=== PATIENT | male | born 1955 | race Caucasian/White ===

== ENCOUNTER 2016-10-15 20:41 | Emergency (ER) | payer MEDICAID, OTHER ==
[~2016-10-15] VITALS: Ht 188 cm; Wt 82.0 kg
[2016-10-15] MEDS ORDERED: ACETAMINOPHEN 325MG TABLET PO ONE (22:15)
[2016-10-15] MEDS ORDERED: LORAZEPAM 1MG TABLET PO ONE (22:15)
[2016-10-15 22:36] LABS: GLUCOSE URINE NEGATIVE (NEGATIVE); KETONES URINE NEGATIVE (NEGATIVE); LEUKOCYTE ESTERASE URINE NEGATIVE (NEGATIVE); NITRITE URINE NEGATIVE (NEGATIVE); OCCULT BLOOD URINE NEGATIVE (NEGATIVE); PROTEIN URINE NEGATIVE (NEGATIVE); SPECIFIC GRAVITY URINE 1.023 (1.005-1.030)
[2016-10-15 22:39] LABS: CLARITY URINE CLEAR (CLEAR); COLOR URINE YELLOW (YELLOW)
[2016-10-15 22:48] LABS: *AMPHETAMINES SCREEN URINE PRESUMTIVE POSITIVE (NEGATIVE); *BARBITURATES SCREEN URINE NEGATIVE (NEGATIVE); *BENZODIAZEPINES SCREEN URINE NEGATIVE (NEGATIVE); *COCAINE SCREEN URINE NEGATIVE (NEGATIVE); CANNABINOID URINE SCREEN NEGATIVE (NEGATIVE); METHADONE URINE SCREEN PRESUMTIVE POSITIVE (NEGATIVE); OPIATES URINE SCREEN NEGATIVE (NEGATIVE); PHENCYCLIDINE URINE SCREEN NEGATIVE (NEGATIVE)
[2016-10-15 22:58] LABS: CHLORIDE 100 mEq/L (98-107)
[2016-10-15 23:00] LABS: BASOPHILS % 0.6 % (0.0-2.0); EOSINOPHILS % 1.4 % (0.0-5.0); HEMATOCRIT. 34.8 % (42.0-52.0); HEMOGLOBIN. 11.7 g/dL (14.0-18.0); LYMPHOCYTES % 21.8 % (20.0-50.0); MEAN CORPUSCULAR HEMOGLOBIN 24.7 pg (28.0-32.0); MEAN CORPUSCULAR VOLUME 73.6 fL (80.0-94.0); MEAN PLATELET VOLUME 7.9 fl (7.4-10.4); MONOCYTES % 11.7 % (2.0-8.0); NEUTROPHILS % 64.5 % (40.0-76.0); PLATELET 243 x1000/uL (130-400); RED BLOOD CELL COUNT 4.73 mill/uL (4.7-6.1); RED CELL DISTRIBUTION WIDTH 17.5 % (11.6-14.6)
[2016-10-15 23:01] LABS: CARBON DIOXIDE 27 mEq/L (21-32)
[2016-10-15 23:07] LABS: ETHANOL BLOOD < 10 mg/dL
[2016-10-16] MEDS ORDERED: BACITRACIN ZINC OINT UDPKT TOP ONE (03:00)
[2016-10-16] MEDS ORDERED: LORAZEPAM 1MG TABLET PO ONE ×2 (06:15→06:25)
[2016-10-16] MEDS ORDERED: IBUPROFEN 600MG TABLET PO ONE ×3 (06:15→06:25)
[2016-10-16 12:05] VITALS: BP 133/76
== END 2016-10-16 15:29 | disposition home or self-care (01) ==
LOC: ER 22:19
DX: R44.1 Visual hallucinations (principal); S41.102A Unspecified open wound of left upper arm, initial encounter; F17.210 Nicotine dependence, cigarettes, uncomplicated; F12.10 Cannabis abuse, uncomplicated; F15.10 Other stimulant abuse, uncomplicated; S41.101A Unspecified open wound of right upper arm, initial encounter; X58.XXXA Exposure to other specified factors, initial encounter; Y92.018 Other place in single-family (private) house as the place of occurrence of the external cause
CPT/HCPCS: 36415; 70450; 80053; 80305; 80307; 80329; 81003; 85025; 99285; G0482; Z7610

== ENCOUNTER 2017-04-03 21:14 | Emergency (ER) | payer OTHER ==
[~2017-04-03] VITALS: Ht 190.5 cm; Wt 79.0 kg
[2017-04-03] MEDS ORDERED: NITROGLYCERIN OINT 1GM/INCH UDPKT TD ONE (21:30)
[2017-04-03] MEDS ORDERED: ASPIRIN 81MG TABLET PO ONE (21:30)
[2017-04-03 22:06] LABS: HEMATOCRIT. 31.8 % (42.0-52.0); HEMOGLOBIN. 10.2 g/dL (14.0-18.0); MEAN CORPUSCULAR HEMOGLOBIN 23.3 pg (28.0-32.0); MEAN CORPUSCULAR VOLUME 72.8 fL (80.0-94.0); MEAN PLATELET VOLUME 7.9 fl (7.4-10.4); PLATELET 217 x1000/uL (130-400); RED BLOOD CELL COUNT 4.37 mill/uL (4.7-6.1); RED CELL DISTRIBUTION WIDTH 18.5 % (11.6-14.6)
[2017-04-03 22:20] LABS: CARBON DIOXIDE 29 mEq/L (21-32); CHLORIDE 100 mEq/L (98-107); ETHANOL BLOOD < 10 mg/dL; TROPONIN I < 0.02 ng/mL (0.00-0.04)
[2017-04-03 22:38] LABS: PLATELET ESTIMATE NORMAL
[2017-04-04 00:05] VITALS: BP 109/76
== END 2017-04-04 00:07 | disposition home or self-care (01) ==
LOC: ER 21:16
DX: R07.9 Chest pain, unspecified (principal); F15.10 Other stimulant abuse, uncomplicated; R51 Headache; F17.200 Nicotine dependence, unspecified, uncomplicated
CPT/HCPCS: 36415; 71010; 80053; 83690; 83880; 84484; 85025; 93005; 99285; G0482; Z7610

== ENCOUNTER 2017-08-14 22:05 | Emergency (ER) | payer MEDICAID ==
[~2017-08-14] VITALS: Ht 190.5 cm; Wt 77.0 kg
[~2017-08-14 22:05] MED LIST: AMLO10TA80 PO; BACL-141 PO; CEFE1VIA10 IM/IV; DULO60CA63 PO; GABA-531 PO; MSCON30 PO; NORT25CA PO; OXYC-523 PO; PANT40TA4 PO; RIFA300C4 PO; SULF1TAB47 PO; TEMA15CA5 PO
[2017-08-14] MEDS ORDERED: DIPHENHYDRAMINE 50MG/ML VIAL IV ONE (23:45)
[2017-08-14] MEDS ORDERED: CEFEPIME 1,000 MG in DEXTROSE 5% WATER 50 ML IV SCH (23:45)
[2017-08-14] MEDS ORDERED: VANCOMYCIN 1 G PREMIX 200 ML IV ONE (23:45)
[2017-08-14] MEDS ORDERED: MORPHINE SULFATE 2 MG/ML CPJ (NOT FOR IM USE) IV ONE (23:45)
[2017-08-14] MEDS ORDERED: MORPHINE SULFATE 4 MG/ML CPJ (NOT FOR IM USE) IV NR (23:45)
[2017-08-15] MEDS ORDERED: MORPHINE SULFATE 2 MG/ML CPJ (NOT FOR IM USE) IV ONE (03:30)
[2017-08-15] MEDS ORDERED: MORPHINE SULFATE 4 MG/ML CPJ (NOT FOR IM USE) IV NR (03:45)
[2017-08-15] MEDS ORDERED: DIPHENHYDRAMINE 50MG/ML VIAL IV ONE ×2 (04:00→12:30)
[2017-08-15] MEDS ORDERED: ACETAMINOPHEN 325MG TABLET PO PRN (09:45)
[2017-08-15] MEDS ORDERED: VANCOMYCIN 1 G PREMIX 200 ML IV SCH (10:00)
[2017-08-15 13:30] VITALS: BP 136/70
== END 2017-08-15 13:36 | disposition home or self-care (01) ==
LOC: ER 22:16
DX: M25.551 Pain in right hip (principal); M25.552 Pain in left hip; K75.9 Inflammatory liver disease, unspecified; A49.02 Methicillin resistant Staphylococcus aureus infection, unspecified site; Z88.1 Allergy status to other antibiotic agents; Z95.9 Presence of cardiac and vascular implant and graft, unspecified; Z45.2 Encounter for adjustment and management of vascular access device; Z96.649 Presence of unspecified artificial hip joint
CPT/HCPCS: 96365; 96366; 96368; 96375; 96376; 99285; J0692; J1200; J2270; J3370; Z7610; 96367; J7060

== ENCOUNTER 2017-10-29 21:57 | Emergency (ER) | payer MEDICAID ==
[~2017-10-29] VITALS: Ht 182.9 cm; Wt 73.0 kg
[~2017-10-29 21:57] MED LIST changes: -RIFA300C4 PO; -SULF1TAB47 PO
[2017-10-29] MEDS ORDERED: HYDROCODONE/ACETAMINOPHEN 5/325MG TABLET PO STA (22:09)
[2017-10-29 22:33] LABS: BASOPHILS % 0.4 % (0.0-2.0); EOSINOPHILS % 0.1 % (0.0-5.0); HEMATOCRIT. 34.8 % (42.0-52.0); HEMOGLOBIN. 11.3 g/dL (14.0-18.0); LYMPHOCYTES % 9.7 % (20.0-50.0); MEAN CORPUSCULAR HEMOGLOBIN 24.8 pg (28.0-32.0); MEAN CORPUSCULAR VOLUME 76.9 fL (80.0-94.0); MEAN PLATELET VOLUME 8.9 fl (7.4-10.4); MONOCYTES % 12.7 % (2.0-8.0); NEUTROPHILS % 77.1 % (40.0-76.0); PLATELET 243 x1000/uL (130-400); RED BLOOD CELL COUNT 4.53 mill/uL (4.7-6.1); RED CELL DISTRIBUTION WIDTH 17.3 % (11.6-14.6)
[2017-10-29 22:40] LABS: CHLORIDE 94 mEq/L (98-107); INR 1.1; PROTHROMBIN TIME 11.2 sec (9.4-11.6)
[2017-10-29 22:43] LABS: ETHANOL BLOOD < 10 mg/dL
[2017-10-29 23:45] VITALS: BP 136/77
== END 2017-10-30 00:09 | disposition home or self-care (01) ==
LOC: ER 21:57
DX: M25.559 Pain in unspecified hip (principal); E86.0 Dehydration; Z96.643 Presence of artificial hip joint, bilateral; Z88.3 Allergy status to other anti-infective agents
CPT/HCPCS: 36415; 73522; 80053; 84484; 85025; 85610; 99285; G0482

== ENCOUNTER 2018-05-14 22:31 | Emergency (ER) | payer MEDICAID ==
[~2018-05-14] VITALS: Ht 188 cm; Wt 63.0 kg
[2018-05-15] MEDS ORDERED: TETANUS AND DIPHTHERIA TOX/PF 0.5ML SYR (ADULT) IM ONE (00:30)
[2018-05-15] MEDS ORDERED: TETANUS, DIPHTHERIA, PERTUSSIS VAC/PF 0.5ML (>7YR OLD) IM ONE (01:00)
[2018-05-15] MEDS ORDERED: TETANUS TOXOID,ADSORBED/PF 5 LF/0.5 ML VIAL IM ONE (01:00)
[2018-05-15 03:40] VITALS: BP 126/85
== END 2018-05-15 03:41 | disposition home or self-care (01) ==
LOC: ER 22:31
DX: S61.411A Laceration without foreign body of right hand, initial encounter (principal); F17.200 Nicotine dependence, unspecified, uncomplicated; F11.10 Opioid abuse, uncomplicated; Z86.19 Personal history of other infectious and parasitic diseases; Z88.1 Allergy status to other antibiotic agents; Z96.649 Presence of unspecified artificial hip joint; Z79.899 Other long term (current) drug therapy; X78.0XXA Intentional self-harm by sharp glass, initial encounter; Y93.89 Activity, other specified; Y92.89 Other specified places as the place of occurrence of the external cause; Y99.8 Other external cause status
CPT/HCPCS: 73130; 90471; 90714; 90715; 99283

== ENCOUNTER 2018-07-23 18:03 | Inpatient (IN) | payer MEDICAID ==
[~2018-07-23] VITALS: Ht 193 cm; Wt 67.6 kg
[2018-07-23] MEDS ORDERED: ASPIRIN 325MG TABLET PO ONE (20:45)
[2018-07-23] MEDS ORDERED: KETOROLAC 60MG/2ML VIAL IM ONE (21:45)
[2018-07-23 21:50] LABS: BASOPHILS % 0.8 % (0.0-2.0); EOSINOPHILS % 2.2 % (0.0-5.0); HEMATOCRIT. 39.5 % (42.0-52.0); HEMOGLOBIN. 12.9 g/dL (14.0-18.0); LYMPHOCYTES % 23.4 % (20.0-50.0); MEAN CORPUSCULAR HEMOGLOBIN 26.5 pg (28.0-32.0); MEAN CORPUSCULAR VOLUME 81.5 fL (80.0-94.0); MEAN PLATELET VOLUME 8.1 fl (7.4-10.4); MONOCYTES % 10.3 % (2.0-8.0); NEUTROPHILS % 63.3 % (40.0-76.0); PLATELET 285 x1000/uL (130-400); RED BLOOD CELL COUNT 4.85 mill/uL (4.7-6.1); RED CELL DISTRIBUTION WIDTH 15.9 % (11.6-14.6)
[2018-07-23 21:56] LABS: CHLORIDE 115 mEq/L (98-107)
[2018-07-24 08:00] VITALS: BP 127/57
[2018-07-24 08:48] VITALS: BP 122/62
[2018-07-24] MEDS ORDERED: ACETAMINOPHEN 325MG TABLET PO PRN (09:30)
[2018-07-24] MEDS ORDERED: ONDANSETRON HCL 4MG/2ML INJ IV PRN (09:30)
[2018-07-24] MEDS ORDERED: CLONIDINE 0.1MG TABLET PO PRN (09:30)
[2018-07-24] MEDS ORDERED: IPRATROPIUM/ALBUTEROL 0.5-3(2.5)MG/3ML NEB INH PRN (09:30)
[2018-07-24] MEDS ORDERED: MORPHINE SULFATE 4 MG/ML CPJ (NOT FOR IM USE) IV PRN (10:00)
[2018-07-24 11:40] VITALS: BP 147/86
[2018-07-24 13:15] LABS: LDL CHOLESTEROL 86 mg/dL (5-100)
[2018-07-24 13:16] LABS: TOTAL IRON BINDING CAPACITY 393 ug/dL (250-450)
[2018-07-24 13:17] LABS: HDL CHOLESTEROL 42 mg/dL (40-59)
[2018-07-24] MEDS ORDERED: LIDOCAINE HCL 1% 20ML VIAL (Pyxis) INJ ONE (13:24)
[2018-07-24] MEDS ORDERED: SODIUM BICARBONATE 4% (2.4MEQ) 5ML VIAL IV ONE (13:24)
[2018-07-24 13:26] LABS: FERRITIN 74 ng/mL (22-322)
[2018-07-24 13:37] LABS: VITAMIN B12 SERUM 704 pg/mL (211-911)
[2018-07-24 13:43] LABS: FOLIC ACID (FOLATE) SERUM > 20.00 ng/mL (>5.38)
[2018-07-24] MEDS ORDERED: IOHEXOL-300 50 ML BOTTLE IV ONE (14:19)
[2018-07-24] MEDS: METHADONE HCL 10MG TABLET PO SCH (17:17)
[2018-07-24 20:00] VITALS: BP 134/78
[2018-07-24] MEDS: LORAZEPAM 0.5MG TABLET PO PRN (20:40)
[2018-07-24] MEDS: HYDROCODONE/ACETAMINOPHEN 5/325MG TABLET PO PRN (21:59)
[2018-07-25] VITALS: BP 133/71
[2018-07-25 04:00] VITALS: BP 116/66
[2018-07-25] MEDS: HYDROCODONE/ACETAMINOPHEN 5/325MG TABLET PO PRN ×2 (06:04→22:29)
[2018-07-25 06:57] LABS: CHLORIDE 109 mEq/L (98-107)
[2018-07-25 07:06] LABS: C REACTIVE PROTEIN QUANT 0.5 mg/L (0.0-3.0)
[2018-07-25 07:13] LABS: BASOPHILS % 0.9 % (0.0-2.0); EOSINOPHILS % 4.2 % (0.0-5.0); HEMATOCRIT. 39.9 % (42.0-52.0); HEMOGLOBIN. 12.8 g/dL (14.0-18.0); LYMPHOCYTES % 24.6 % (20.0-50.0); MEAN CORPUSCULAR HEMOGLOBIN 26.2 pg (28.0-32.0); MEAN CORPUSCULAR VOLUME 81.5 fL (80.0-94.0); MEAN PLATELET VOLUME 8.3 fl (7.4-10.4); MONOCYTES % 12.9 % (2.0-8.0); NEUTROPHILS % 57.4 % (40.0-76.0); PLATELET 267 x1000/uL (130-400); RED CELL DISTRIBUTION WIDTH 16.1 % (11.6-14.6)
[2018-07-25] MEDS: METHADONE HCL 10MG TABLET PO SCH ×2 (09:07→17:49)
[2018-07-25 12:00] VITALS: BP 102/66
[2018-07-25 15:47] LABS: INR 1.1; PROTHROMBIN TIME 11.3 sec (9.1-11.1)
[2018-07-25] MEDS: MORPHINE SULFATE 4 MG/ML CPJ (NOT FOR IM USE) IV PRN ×2 (15:47→19:59)
[2018-07-25 16:00] VITALS: BP 113/63
[2018-07-25 16:44] LABS: T4 FREE 1.35 ng/dL (0.76-1.46)
[2018-07-25 20:00] VITALS: BP 106/70
[2018-07-26] VITALS: BP 101/63
[2018-07-26] MEDS: MORPHINE SULFATE 4 MG/ML CPJ (NOT FOR IM USE) IV PRN ×4 (00:39→19:32)
[2018-07-26] MEDS: ZOLPIDEM TARTRATE 5MG TABLET PO PRN ×2 (00:40→19:30)
[2018-07-26 04:00] VITALS: BP 110/63
[2018-07-26 08:00] VITALS: BP 107/70
[2018-07-26] MEDS ORDERED: SODIUM BICARBONATE 4% (2.4MEQ) 5ML VIAL IV ONE (08:22)
[2018-07-26] MEDS ORDERED: LIDOCAINE HCL 1% 20ML VIAL (Pyxis) INJ ONE (08:22)
[2018-07-26] MEDS: METHADONE HCL 10MG TABLET PO SCH ×2 (09:46→16:10)
[2018-07-26 09:50] LABS: CLARITY URINE CLEAR (CLEAR); COLOR URINE YELLOW (YELLOW); KETONES URINE NEGATIVE (NEGATIVE); LEUKOCYTE ESTERASE URINE NEGATIVE (NEGATIVE); NITRITE URINE NEGATIVE (NEGATIVE); OCCULT BLOOD URINE NEGATIVE (NEGATIVE); PH URINE 5.5 (4.5-8.0); PROTEIN URINE NEGATIVE (NEGATIVE); SPECIFIC GRAVITY URINE 1.019 (1.005-1.030); UROBILINOGEN URINE 0.2 E.U./dL (0.2-1.0)
[2018-07-26 09:51] LABS: *AMPHETAMINES SCREEN URINE PRESUMTIVE POSITIVE (NEGATIVE); *BARBITURATES SCREEN URINE NEGATIVE (NEGATIVE); *BENZODIAZEPINES SCREEN URINE NEGATIVE (NEGATIVE); *COCAINE SCREEN URINE NEGATIVE (NEGATIVE); METHADONE URINE SCREEN PRESUMTIVE POSITIVE (NEGATIVE); OPIATES URINE SCREEN PRESUMTIVE POSITIVE (NEGATIVE)
[2018-07-26 09:52] LABS: CANNABINOID URINE SCREEN NEGATIVE (NEGATIVE); PHENCYCLIDINE URINE SCREEN NEGATIVE (NEGATIVE)
[2018-07-26 12:00] VITALS: BP 111/67
[2018-07-26 16:00] VITALS: BP 110/65
[2018-07-26] MEDS: LORAZEPAM 0.5MG TABLET PO PRN (17:41)
[2018-07-26 20:00] VITALS: BP 100/61
[2018-07-26] MEDS: HYDROCODONE/ACETAMINOPHEN 5/325MG TABLET PO PRN (22:20)
[2018-07-27] VITALS: BP 112/58
[2018-07-27] MEDS: MORPHINE SULFATE 4 MG/ML CPJ (NOT FOR IM USE) IV PRN ×4 (02:33→22:09)
[2018-07-27 07:00] LABS: HEMATOCRIT. 37.5 % (42.0-52.0); HEMOGLOBIN. 11.9 g/dL (14.0-18.0); MEAN CORPUSCULAR HEMOGLOBIN 25.8 pg (28.0-32.0); MEAN CORPUSCULAR VOLUME 81.4 fL (80.0-94.0); MEAN PLATELET VOLUME 8.5 fl (7.4-10.4); PLATELET 185 x1000/uL (130-400); RED BLOOD CELL COUNT 4.61 mill/uL (4.7-6.1); RED CELL DISTRIBUTION WIDTH 15.8 % (11.6-14.6)
[2018-07-27 07:14] LABS: CHLORIDE 103 mEq/L (98-107)
[2018-07-27 08:00] VITALS: BP 108/58
[2018-07-27] MEDS: METHADONE HCL 10MG TABLET PO SCH ×2 (09:33→18:07)
[2018-07-27 09:51] LABS: PLATELET ESTIMATE NORMAL
[2018-07-27 12:00] VITALS: BP 88/68
[2018-07-27 16:00] VITALS: BP 111/65
[2018-07-27] MEDS: HYDROCODONE/ACETAMINOPHEN 5/325MG TABLET PO PRN (20:02)
[2018-07-27] MEDS: LORAZEPAM 0.5MG TABLET PO PRN (20:03)
[2018-07-27] MEDS: ZOLPIDEM TARTRATE 5MG TABLET PO PRN (22:07)
[2018-07-28] VITALS: BP 104/56
[2018-07-28 04:00] VITALS: BP 102/61
[2018-07-28] MEDS: MORPHINE SULFATE 4 MG/ML CPJ (NOT FOR IM USE) IV PRN ×4 (05:48→23:33)
[2018-07-28 08:00] VITALS: BP 103/59
[2018-07-28] MEDS: HYDROCODONE/ACETAMINOPHEN 5/325MG TABLET PO PRN (08:09)
[2018-07-28 08:19] LABS: HIV SCREEN 4G Non Reactive (Non Reactive)
[2018-07-28] MEDS: METHADONE HCL 10MG TABLET PO SCH ×2 (09:00→17:34)
[2018-07-28 12:00] VITALS: BP 100/51
[2018-07-28 20:00] VITALS: BP 100/44
[2018-07-28] MEDS: ZOLPIDEM TARTRATE 5MG TABLET PO PRN (20:26)
[2018-07-29] VITALS: BP 104/57
[2018-07-29] MEDS: LORAZEPAM 0.5MG TABLET PO PRN (01:38)
[2018-07-29 04:00] VITALS: BP 123/57
[2018-07-29] MEDS: MORPHINE SULFATE 4 MG/ML CPJ (NOT FOR IM USE) IV PRN ×4 (05:49→20:30)
[2018-07-29 08:00] VITALS: BP 106/58
[2018-07-29] MEDS: METHADONE HCL 10MG TABLET PO SCH (09:12)
[2018-07-29 12:00] VITALS: BP 106/55
[2018-07-29 16:00] VITALS: BP 102/60
[2018-07-29 20:00] VITALS: BP 102/53
[2018-07-29] MEDS ORDERED: ZOLPIDEM TARTRATE 5MG TABLET PO PRN (22:15)
[2018-07-30] VITALS: BP 102/53
[2018-07-30 04:00] VITALS: BP 114/70
[2018-07-30] MEDS: MORPHINE SULFATE 4 MG/ML CPJ (NOT FOR IM USE) IV PRN ×2 (04:55→11:44)
[2018-07-30 06:47] LABS: HEMATOCRIT. 34.8 % (42.0-52.0); HEMOGLOBIN. 11.4 g/dL (14.0-18.0); MEAN CORPUSCULAR HEMOGLOBIN 26.7 pg (28.0-32.0); MEAN CORPUSCULAR VOLUME 81.6 fL (80.0-94.0); MEAN PLATELET VOLUME 8.9 fl (7.4-10.4); PLATELET 127 x1000/uL (130-400); RED BLOOD CELL COUNT 4.26 mill/uL (4.7-6.1); RED CELL DISTRIBUTION WIDTH 16.1 % (11.6-14.6)
[2018-07-30 07:07] LABS: CHLORIDE 104 mEq/L (98-107)
[2018-07-30 08:00] VITALS: BP 105/53
[2018-07-30] MEDS: METHADONE HCL 10MG TABLET PO SCH (09:38)
[2018-07-30 12:00] VITALS: BP 113/56
[2018-07-30 13:03] LABS: PLATELET ESTIMATE SLIGHTLY DECREASED
[2018-07-30 15:28] VITALS: BP 113/69
[2018-07-30 16:00] VITALS: BP 99/48
== END 2018-07-30 16:00 | disposition home health service (06) | DRG 349 ==
LOC: ER 18:03 → 6EST 07-24 00:57 → EDBEDREQTM 07-24 01:08 → EDBEDREQ 07-24 01:08 → ENRESERV 07-24 04:04
PROVIDERS: ADMIT Internal Medicine; ATTEND Internal Medicine
PROC: 02HV33Z Insertion of Infusion Device into Superior Vena Cava, Percutaneous Approach (ICD-10-PCS; principal; 2018-07-24)
PROC: B5181ZA Fluoroscopy of Superior Vena Cava using Low Osmolar Contrast, Guidance (ICD-10-PCS; 2018-07-24)
PROC: B548ZZA Ultrasonography of Superior Vena Cava, Guidance (ICD-10-PCS; 2018-07-24)
PROC: 0S9B3ZZ Drainage of Left Hip Joint, Percutaneous Approach (ICD-10-PCS; 2018-07-26)
DX: T84.031A Mechanical loosening of internal left hip prosthetic joint, initial encounter (principal); F11.20 Opioid dependence, uncomplicated; M86.9 Osteomyelitis, unspecified; E87.6 Hypokalemia; G89.4 Chronic pain syndrome; Z96.643 Presence of artificial hip joint, bilateral; Z59.0 Homelessness; Z86.14 Personal history of Methicillin resistant Staphylococcus aureus infection; D64.9 Anemia, unspecified; T84.030A Mechanical loosening of internal right hip prosthetic joint, initial encounter; D72.821 Monocytosis (symptomatic); Z88.1 Allergy status to other antibiotic agents; F17.210 Nicotine dependence, cigarettes, uncomplicated; I10 Essential (primary) hypertension; Z87.81 Personal history of (healed) traumatic fracture; L97.519 Non-pressure chronic ulcer of other part of right foot with unspecified severity; Y83.8 Other surgical procedures as the cause of abnormal reaction of the patient, or of later complication, without mention of misadventure at the time of the procedure; Y92.89 Other specified places as the place of occurrence of the external cause
CPT/HCPCS: 20611; 36415; 36569; 73521; 73630; 73721; 75820; 76937; 77001; 80048; 80061; 80305; 82607; 82728; 82746; 83036; 83540; 83550; 83735; 84100; 84145; 84439; 84443; 84481; 85049; 85651; 86140; 87389; 96374; 96375; 97162; 99285; C1725; C1887; J1885; J2270; J3490; Q9967

== ENCOUNTER 2019-04-07 21:27 | Emergency (ER) | payer OTHER ==
[~2019-04-07] VITALS: Ht 180.3 cm; Wt 82.0 kg
[~2019-04-07 21:27] MED LIST changes: -DULO60CA63 PO; +DULO60CA64 PO
[2019-04-07] MEDS ORDERED: IBUPROFEN 400MG TABLET PO ONE (22:15)
[2019-04-07] MEDS ORDERED: KETOROLAC 30MG/ML VIAL IM ONE (22:30)
[2019-04-07] MEDS ORDERED: ACETAMINOPHEN 650MG/20.3ML UDC PO ONE (23:00)
[2019-04-07 23:38] LABS: CHLORIDE 106 mEq/L (98-107)
[2019-04-07 23:41] LABS: ETHANOL BLOOD < 10 mg/dL
[2019-04-07] MEDS ORDERED: ACETAMINOPHEN 325MG TABLET PO ONE (23:45)
[2019-04-07 23:48] LABS: HEMATOCRIT. 37.9 % (42.0-52.0); HEMOGLOBIN. 12.3 g/dL (14.0-18.0); MEAN CORPUSCULAR HEMOGLOBIN 24.4 pg (28.0-32.0); MEAN CORPUSCULAR VOLUME 75.5 fL (80.0-94.0); MEAN PLATELET VOLUME 8.7 fl (7.4-10.4); PLATELET 202 x1000/uL (130-400); RED BLOOD CELL COUNT 5.02 mill/uL (4.7-6.1); RED CELL DISTRIBUTION WIDTH 21.8 % (11.6-14.6)
[2019-04-08 00:48] LABS: PLATELET ESTIMATE NORMAL
[2019-04-08 01:03] LABS: CLARITY URINE CLOUDY (CLEAR); COLOR URINE YELLOW (YELLOW); KETONES URINE 1+ (NEGATIVE); LEUKOCYTE ESTERASE URINE NEGATIVE (NEGATIVE); NITRITE URINE NEGATIVE (NEGATIVE); OCCULT BLOOD URINE NEGATIVE (NEGATIVE); PH URINE 6.5 (4.5-8.0); PROTEIN URINE 1+ (NEGATIVE); SPECIFIC GRAVITY URINE 1.021 (1.005-1.030)
[2019-04-08 01:23] LABS: *AMPHETAMINES SCREEN URINE PRESUMTIVE POSITIVE (NEGATIVE); *BARBITURATES SCREEN URINE NEGATIVE (NEGATIVE); OPIATES URINE SCREEN PRESUMTIVE POSITIVE (NEGATIVE)
[2019-04-08 01:24] LABS: *BENZODIAZEPINES SCREEN URINE NEGATIVE (NEGATIVE); *COCAINE SCREEN URINE NEGATIVE (NEGATIVE); CANNABINOID URINE SCREEN PRESUMTIVE POSITIVE (NEGATIVE); METHADONE URINE SCREEN NEGATIVE (NEGATIVE); PHENCYCLIDINE URINE SCREEN NEGATIVE (NEGATIVE)
[2019-04-08] MEDS ORDERED: ACETAMINOPHEN 325MG TABLET PO ONE (03:45)
[2019-04-08] MEDS ORDERED: LORAZEPAM 2MG/ML CPJ IM ONE (04:00)
[2019-04-08] MEDS ORDERED: IBUPROFEN 600MG TABLET PO ONE (06:45)
[2019-04-08] MEDS ORDERED: LORAZEPAM 1MG TABLET PO ONE (08:15)
[2019-04-08] MEDS ORDERED: KETOROLAC 60MG/2ML VIAL IM ONE ×2 (12:45→18:30)
[2019-04-08] MEDS ORDERED: GABAPENTIN 300MG CAPSULE PO ONE (15:15)
[2019-04-08] MEDS ORDERED: LORAZEPAM 0.5MG TABLET PO ONE (22:00)
[2019-04-08] MEDS ORDERED: IBUPROFEN 800MG TABLET PO ONE (22:45)
[2019-04-09] MEDS ORDERED: TRAMADOL 50MG TABLET PO ONE (03:45)
[2019-04-09] MEDS ORDERED: HYDROCODONE/ACETAMINOPHEN 5/325MG TABLET PO ONE (04:45)
[2019-04-09] MEDS ORDERED: DIPHENHYDRAMINE 25MG CAPSULE PO ONE (07:00)
[2019-04-09] MEDS ORDERED: OXYCODONE HCL 10MG TABLET SR 12HR PO ONE (07:00)
[2019-04-09] MEDS ORDERED: KETOROLAC 15MG/ML VIAL IM ONE (09:00)
[2019-04-09 14:29] VITALS: BP 170/82
== END 2019-04-09 14:30 | disposition home or self-care (01) ==
LOC: ER 21:27
DX: M25.551 Pain in right hip (principal); M25.552 Pain in left hip; R45.851 Suicidal ideations; R35.0 Frequency of micturition; R53.81 Other malaise; R03.0 Elevated blood-pressure reading, without diagnosis of hypertension; F17.210 Nicotine dependence, cigarettes, uncomplicated
CPT/HCPCS: 36415; 80053; 80307; 80320; 80329; 85025; 96372; 99284; J1885; Q0163; Z7610; G0480

== ENCOUNTER 2020-04-18 20:30 | Emergency (ER) | payer OTHER ==
[~2020-04-18] VITALS: Ht 188 cm; Wt 79.0 kg
[2020-04-19 01:38] LABS: HEMATOCRIT 35.1 % (42.0-52.0); HEMOGLOBIN 11.2 g/dL (14.0-18.0); MEAN CORPUSCULAR HEMOGLOBIN 24.5 pg (28.0-32.0); MEAN CORPUSCULAR VOLUME 76.9 fL (80.0-94.0); PLATELET 273 x1000/uL (130-400); RED BLOOD CELL COUNT 4.56 mill/uL (4.7-6.1); RED CELL DISTRIBUTION WIDTH 19.3 % (11.6-14.6)
[2020-04-19 01:43] LABS: CHLORIDE 104 mEq/L (98-107)
[2020-04-19 02:11] VITALS: BP 120/59
== END 2020-04-19 03:00 | disposition home or self-care (01) ==
LOC: ER 20:30
DX: M25.551 Pain in right hip (principal); G89.29 Other chronic pain; Z76.5 Malingerer [conscious simulation]; R03.0 Elevated blood-pressure reading, without diagnosis of hypertension; R00.0 Tachycardia, unspecified; Z96.641 Presence of right artificial hip joint; Z96.659 Presence of unspecified artificial knee joint; Z86.19 Personal history of other infectious and parasitic diseases
CPT/HCPCS: 36415; 80053; 83605; 84145; 85027; 93005; 99284

== ENCOUNTER 2020-05-16 20:40 | Emergency (ER) | payer OTHER ==
[~2020-05-16] VITALS: Ht 180.3 cm; Wt 72.0 kg
[2020-05-16] MEDS ORDERED: HYDROCODONE/ACETAMINOPHEN 5/325MG TABLET PO ONE (22:15)
[2020-05-16] MEDS ORDERED: KETOROLAC 60MG/2ML VIAL IM ONE (22:15)
[2020-05-16 23:07] VITALS: BP 157/69
== END 2020-05-16 23:08 | disposition home or self-care (01) ==
LOC: ER 20:40
DX: G89.29 Other chronic pain (principal); M25.552 Pain in left hip; M25.551 Pain in right hip; F11.20 Opioid dependence, uncomplicated; Z88.1 Allergy status to other antibiotic agents; Z88.9 Allergy status to unspecified drugs, medicaments and biological substances; Z79.899 Other long term (current) drug therapy
CPT/HCPCS: 96372; 99283; J1885

== ENCOUNTER 2020-05-20 18:25 | Emergency (ER) | payer OTHER ==
[~2020-05-20] VITALS: Ht 172.7 cm; Wt 86.0 kg
[2020-05-20] MEDS ORDERED: KETOROLAC 60MG/2ML VIAL IM ONE (19:30)
[2020-05-20] MEDS ORDERED: ACETAMINOPHEN 325MG TABLET PO ONE (22:45)
[2020-05-21 00:33] VITALS: BP 113/66
== END 2020-05-21 03:09 | disposition home or self-care (01) ==
LOC: ER 18:38
DX: S80.01XA Contusion of right knee, initial encounter (principal); W18.39XA Other fall on same level, initial encounter; Y93.89 Activity, other specified; Y92.89 Other specified places as the place of occurrence of the external cause; Y99.8 Other external cause status; Z79.899 Other long term (current) drug therapy; Z88.1 Allergy status to other antibiotic agents; Z20.822 Contact with and (suspected) exposure to COVID-19
CPT/HCPCS: 71045; 73560; 93005; 96372; 99284; J1885; L1830

== ENCOUNTER 2020-05-24 17:22 | Emergency (ER) | payer OTHER ==
[~2020-05-24] VITALS: Ht 170.2 cm; Wt 75.0 kg
[~2020-05-24 17:22] MED LIST changes: -GABA-531 PO; +GABA-532 PO; -PANT40TA4 PO; +PANT40TA51 PO
[2020-05-24 17:27] VITALS: BP 170/82
[2020-05-24] MEDS ORDERED: ACETAMINOPHEN 325MG TABLET PO ONE (17:45)
== END 2020-05-24 19:16 | disposition left against medical advice (07) ==
LOC: ER 17:22
DX: M16.11 Unilateral primary osteoarthritis, right hip (principal); G89.29 Other chronic pain; I10 Essential (primary) hypertension; F15.10 Other stimulant abuse, uncomplicated; F11.10 Opioid abuse, uncomplicated
CPT/HCPCS: 99283

== ENCOUNTER 2021-04-14 21:10 | Emergency (ER) | payer OTHER ==
[~2021-04-14] VITALS: Ht 177.8 cm; Wt 65.0 kg
[~2021-04-14 21:10] MED LIST changes: -OXYC-523 PO; +OXYC1TAB5 PO
[2021-04-15 03:12] LABS: BASOPHILS % 0.6 % (0.0-2.0); EOSINOPHILS % 1.1 % (0.0-5.0); HEMATOCRIT. 37.9 % (42.0-52.0); LYMPHOCYTES % 11.7 % (20.0-50.0); MEAN CORPUSCULAR HEMOGLOBIN 25.3 pg (28.0-32.0); MEAN CORPUSCULAR VOLUME 79.9 fL (80.0-94.0); MEAN PLATELET VOLUME 8.5 fl (7.4-10.4); NEUTROPHILS % 73.6 % (40.0-76.0); PLATELET 153 x1000/uL (130-400); RED BLOOD CELL COUNT 4.74 mill/uL (4.7-6.1)
[2021-04-15 03:18] LABS: CHLORIDE 105 mEq/L (98-107)
[2021-04-15] MEDS ORDERED: CLINDAMYCIN 900 MG PREMIX 50 ML IV SCH (04:15)
[2021-04-15] MEDS ORDERED: MORPHINE SULFATE 4 MG/ML CPJ (NOT FOR IM USE) IV ONE (05:45)
[2021-04-15] MEDS ORDERED: ACETAMINOPHEN 325MG TABLET PO ONE (08:45)
[2021-04-15 12:10] VITALS: BP 114/65
[2021-04-15] MEDS ORDERED: IBUPROFEN 200MG TABLET PO ONE (12:45)
== END 2021-04-15 13:15 | disposition short-term general hospital (02) ==
LOC: ER 21:10
DX: M86.9 Osteomyelitis, unspecified (principal); M25.552 Pain in left hip; Z79.899 Other long term (current) drug therapy; Z20.822 Contact with and (suspected) exposure to COVID-19
CPT/HCPCS: 36415; 73502; 80053; 85025; 86140; 87426; 96365; 96375; 99285; J2270; J3490

== ENCOUNTER 2022-09-15 18:47 | Inpatient (IN) | payer MEDICAID, OTHER ==
[~2022-09-15] VITALS: Ht 175.3 cm; Wt 68.0 kg
[2022-09-15] MEDS ORDERED: CLINDAMYCIN 600 MG in DEXTROSE 5% WATER 50 ML IV ONE (20:00)
[2022-09-15] MEDS ORDERED: SODIUM CHLORIDE 0.9% 1000ML BAG (SEPSIS BOLUS) IV ONE (20:00)
[2022-09-15] MEDS ORDERED: MORPHINE SULFATE 4 MG/ML CPJ (NOT FOR IM USE) IV STA (20:02)
[2022-09-15] MEDS ORDERED: ONDANSETRON HCL 4MG/2ML INJ IV STA (20:02)
[2022-09-15] MEDS ORDERED: PIPERACILLIN/TAZ 3.375G PREMIX 50 ML IV ONE (20:15)
[2022-09-15 20:43] LABS: BASOPHILS % 0.4 % (0.0-2.0); EOSINOPHILS % 1.5 % (0.0-5.0); HEMATOCRIT. 38.9 % (42.0-52.0); HEMOGLOBIN. 12.3 g/dL (14.0-18.0); MEAN CORPUSCULAR HEMOGLOBIN 28.5 pg (28.0-32.0); MEAN CORPUSCULAR VOLUME 90.4 fL (80.0-94.0); MEAN PLATELET VOLUME 7.5 fl (7.4-10.4); MONOCYTES % 10.9 % (2.0-8.0); NEUTROPHILS % 77.2 % (40.0-76.0); PLATELET 248 x1000/uL (130-400); RED CELL DISTRIBUTION WIDTH 14.1 % (11.6-14.6)
[2022-09-15 20:48] LABS: CHLORIDE 103 mEq/L (98-107)
[2022-09-15] MEDS ORDERED: PIPERACILLIN/TAZ 3.375G PREMIX 50 ML IV NR (23:00)
[2022-09-15] MEDS ORDERED: ONDANSETRON HCL 4MG/2ML INJ IV NR (23:00)
[2022-09-15 23:28] LABS: PARTIAL THROMBOPLASTIN TIME 28.5 sec (23.4-31.0); PROTHROMBIN TIME 11.1 sec (9.6-11.0)
[2022-09-16] MEDS ORDERED: MORPHINE SULFATE 2 MG/ML CPJ (NOT FOR IM USE) IV ONE ×2 (01:45→05:00)
[2022-09-16] MEDS ORDERED: HYDROCODONE/ACETAMINOPHEN 5/325MG TABLET PO PRN (02:15)
[2022-09-16] MEDS ORDERED: DOCUSATE SODIUM 100MG CAPSULE PO PRN (02:15)
[2022-09-16] MEDS ORDERED: MAGNESIUM/ALUMINUM HYDROXIDE/SIMETHICONE 30ML UDC PO PRN (02:15)
[2022-09-16] MEDS ORDERED: ACETAMINOPHEN 325MG TABLET PO PRN (02:15)
[2022-09-16] MEDS ORDERED: ONDANSETRON HCL 4MG/2ML INJ IV PRN (02:15)
[2022-09-16] MEDS: SODIUM CHLORIDE 0.9% 1,000 ML IV SCH ×2 (02:27→16:00)
[2022-09-16] MEDS ORDERED: NALOXONE HCL 1 MG/ML 2ML VIAL IV PRN (05:00)
[2022-09-16 05:29] LABS: BASOPHILS % 0.7 % (0.0-2.0); HEMATOCRIT. 30.4 % (42.0-52.0); HEMOGLOBIN. 10.2 g/dL (14.0-18.0); LYMPHOCYTES % 15.3 % (20.0-50.0); MEAN CORPUSCULAR HEMOGLOBIN 29.1 pg (28.0-32.0); MEAN CORPUSCULAR VOLUME 86.9 fL (80.0-94.0); MEAN PLATELET VOLUME 7.4 fl (7.4-10.4); MONOCYTES % 14.8 % (2.0-8.0); NEUTROPHILS % 67.2 % (40.0-76.0); PLATELET 197 x1000/uL (130-400); RED BLOOD CELL COUNT 3.49 mill/uL (4.7-6.1); RED CELL DISTRIBUTION WIDTH 13.6 % (11.6-14.6)
[2022-09-16 05:38] LABS: CHLORIDE 117 mEq/L (98-107)
[2022-09-16 05:49] LABS: HDL CHOLESTEROL 21 mg/dL (40-59); LDL CHOLESTEROL 53 mg/dL (5-100); TOTAL IRON BINDING CAPACITY 162 ug/dL (250-450)
[2022-09-16] MEDS ORDERED: PIPERACILLIN/TAZOBACTAM 3.375 G in DEXTROSE 5% WATER 50 ML IV SCH ×2 (06:00→14:00)
[2022-09-16] MEDS ORDERED: MORPHINE SULFATE 2 MG/ML CPJ (NOT FOR IM USE) IV PRN (06:00)
[2022-09-16] MEDS ORDERED: DAPTOMYCIN 250 MG in SODIUM CHLORIDE 0.9% 50 ML IV SCH (06:00)
[2022-09-16 06:10] LABS: FOLIC ACID (FOLATE) SERUM 13.4 ng/mL (>5.38)
[2022-09-16] MEDS ORDERED: PIPERACILLIN/TAZ 3.375G PREMIX 50 ML IV NR (07:45)
[2022-09-16] MEDS ORDERED: DAPTOMYCIN 400 MG in SODIUM CHLORIDE 0.9% 50 ML IV SCH (09:00)
[2022-09-16] MEDS ORDERED: ENOXAPARIN 40MG/0.4ML SYR SUBCUT SCH (09:00)
[2022-09-16 09:26] LABS: CREATINE KINASE 33 IU/L (39-308)
[2022-09-16] MEDS ORDERED: POTASSIUM CHLORIDE INJ 40 MEQ in DEXT 5% WATER 250 ML IV ONE (09:45)
[2022-09-16] MEDS ORDERED: KCL 20MEQ/100ML X 2 FOR TOTAL KCL 40MEQ/200ML IV SCH (10:00)
[2022-09-16] MEDS: ACETAMINOPHEN 325MG TABLET PO PRN ×2 (10:18→10:46)
[2022-09-16] MEDS ORDERED: LORAZEPAM 2MG/ML CPJ IV NR (10:45)
[2022-09-16] MEDS ORDERED: MORPHINE SULFATE 2 MG/ML CPJ (NOT FOR IM USE) IV NR (11:15)
[2022-09-16 12:03] VITALS: BP 138/89
[2022-09-16] MEDS ORDERED: MORPHINE SULFATE 4 MG/ML CPJ (NOT FOR IM USE) IV PRN (12:15)
[2022-09-16] MEDS ORDERED: NALOXONE HCL 0.4MG/ML VIAL IV PRN (12:30)
[2022-09-16] MEDS ORDERED: FAMOTIDINE 20MG TABLET PO SCH (21:00)
== END 2022-09-16 16:55 | disposition left against medical advice (07) | DRG 344 ==
LOC: ER 18:47 → 4WST 09-16 00:45 → EDBEDREQTM 09-16 00:50 → EDBEDREQSVC 09-16 00:50 → EDBEDREQ 09-16 00:50 → EDBEDREQDT 09-16 00:50 → ENRESERV 09-16 07:01 → CANRESERV 09-16 07:01 → EDBEDREQSVC 09-16 07:17
PROVIDERS: ADMIT Internal Medicine; ATTEND Internal Medicine
DX: M86.8X7 Other osteomyelitis, ankle and foot (principal); E46 Unspecified protein-calorie malnutrition; D63.8 Anemia in other chronic diseases classified elsewhere; E87.1 Hypo-osmolality and hyponatremia; L03.039 Cellulitis of unspecified toe; B19.20 Unspecified viral hepatitis C without hepatic coma; J44.9 Chronic obstructive pulmonary disease, unspecified; F17.210 Nicotine dependence, cigarettes, uncomplicated; Z96.643 Presence of artificial hip joint, bilateral; Z88.1 Allergy status to other antibiotic agents; Z68.22 Body mass index [BMI] 22.0-22.9, adult; Z79.899 Other long term (current) drug therapy; Z53.29 Procedure and treatment not carried out because of patient's decision for other reasons
CPT/HCPCS: 36415; 71045; 73620; 80048; 80053; 80061; 82550; 82607; 82728; 82746; 83540; 83550; 83605; 83880; 84145; 84484; 85025; 86850; 86900; 93005; 93970; 99285; C1893; J0878; J1650; J2060; J2270; J2405; J2543; J3490; J7030; J7060

== ENCOUNTER 2022-10-02 23:20 | Inpatient (IN) | payer MEDICAID ==
[~2022-10-02] VITALS: Ht 185.4 cm; Wt 71.2 kg
[2022-10-02] MEDS ORDERED: ONDANSETRON HCL 4MG/2ML INJ IV STA (23:49)
[2022-10-02] MEDS ORDERED: MORPHINE SULFATE 4 MG/ML CPJ (NOT FOR IM USE) IV STA (23:49)
[2022-10-03] MEDS ORDERED: PIPERACILLIN/TAZ 3.375G PREMIX 50 ML IV ONE
[2022-10-03 00:53] LABS: BASOPHILS % 0.9 % (0.0-2.0); EOSINOPHILS % 2.5 % (0.0-5.0); HEMATOCRIT. 40.2 % (42.0-52.0); HEMOGLOBIN. 13.4 g/dL (14.0-18.0); MEAN CORPUSCULAR HEMOGLOBIN 28.1 pg (28.0-32.0); MEAN CORPUSCULAR VOLUME 84.4 fL (80.0-94.0); MEAN PLATELET VOLUME 8.2 fl (7.4-10.4); MONOCYTES % 8.1 % (2.0-8.0); NEUTROPHILS % 76.5 % (40.0-76.0); PLATELET 226 x1000/uL (130-400); RED BLOOD CELL COUNT 4.76 mill/uL (4.7-6.1); RED CELL DISTRIBUTION WIDTH 14.7 % (11.6-14.6)
[2022-10-03 01:00] LABS: CHLORIDE 105 mEq/L (98-107)
[2022-10-03] MEDS ORDERED: DIPHENHYDRAMINE 50MG/ML VIAL IV ONE (02:30)
[2022-10-03] MEDS ORDERED: MORPHINE SULFATE 4 MG/ML CPJ (NOT FOR IM USE) IV NR (04:45)
[2022-10-03] MEDS ORDERED: DIPHENHYDRAMINE 50MG/ML VIAL IV NR (04:45)
[2022-10-03 08:40] VITALS: BP 0/0
[2022-10-03] MEDS ORDERED: HYDROCODONE/ACETAMINOPHEN 5/325MG TABLET PO PRN (11:15)
[2022-10-03] MEDS ORDERED: ONDANSETRON HCL 4MG/2ML INJ IV PRN (11:15)
[2022-10-03] MEDS ORDERED: NALOXONE HCL 0.4MG/ML VIAL IV PRN (11:30)
[2022-10-03] MEDS ORDERED: CEFTRIAXONE 1,000 MG in DEXTROSE 5% WATER 50 ML IV SCH (13:00)
[2022-10-03] MEDS ORDERED: CLONIDINE HCL 0.1MG/24HR PATCH TD SCH (14:30)
== END 2022-10-03 15:07 | disposition left against medical advice (07) | DRG 383 ==
LOC: ER 23:20 → MICUSO 10-03 02:07 → 6EST 10-03 08:58
PROVIDERS: ADMIT Internal Medicine; ATTEND Internal Medicine
DX: L03.115 Cellulitis of right lower limb (principal); E44.1 Mild protein-calorie malnutrition; M86.171 Other acute osteomyelitis, right ankle and foot; K75.9 Inflammatory liver disease, unspecified; F11.10 Opioid abuse, uncomplicated; M06.4 Inflammatory polyarthropathy; Z96.649 Presence of unspecified artificial hip joint; F17.210 Nicotine dependence, cigarettes, uncomplicated; Z53.29 Procedure and treatment not carried out because of patient's decision for other reasons; F10.10 Alcohol abuse, uncomplicated; Y90.9 Presence of alcohol in blood, level not specified; W18.30XA Fall on same level, unspecified, initial encounter; I89.0 Lymphedema, not elsewhere classified; F17.200 Nicotine dependence, unspecified, uncomplicated; Z88.8 Allergy status to other drugs, medicaments and biological substances; Z79.899 Other long term (current) drug therapy; Z88.1 Allergy status to other antibiotic agents; Z71.51 Drug abuse counseling and surveillance of drug abuser
CPT/HCPCS: 36415; 73620; 80053; 83605; 84145; 85025; 87070; 87077; 87186; 99285; J0696; J1200; J2270; J2405; J2543; J7060

== ENCOUNTER 2024-09-24 15:53 | Emergency (ER) | payer OTHER ==
[~2024-09-24] VITALS: Ht 172.7 cm; Wt 77.0 kg
[~2024-09-24 15:53] MED LIST changes: +GABA-1180 PO; -GABA-532 PO
[2024-09-24 16:12] VITALS: TEMP 36.9; O2SAT 95
[2024-09-24 16:43] VITALS: BP 114/69; PULSE 95; RESP 13; O2SAT 100
[2024-09-24 17:33] LABS: BASOPHILS % 1.3 % (0.0-2.0); HEMATOCRIT. 41.8 % (42.0-52.0); HEMOGLOBIN. 13.8 g/dL (14.0-18.0); LYMPHOCYTES % 22.4 % (20.0-50.0); MEAN CORPUSCULAR HEMOGLOBIN 28.3 pg (28.0-32.0); MEAN CORPUSCULAR HGB CONC 32.9 g/dL (31.0-37.0); MEAN CORPUSCULAR VOLUME 86.1 fL (80.0-94.0); MONOCYTES % 12.2 % (2.0-8.0); NEUTROPHILS % 62.1 % (40.0-76.0); PLATELET 201 x1000/uL (130-400); RED BLOOD CELL COUNT 4.85 mill/uL (4.7-6.1); RED CELL DISTRIBUTION WIDTH 14.9 % (11.6-14.6); WHITE BLOOD COUNT 3.7 x1000/uL (4.5-11.0)
[2024-09-24 17:44] LABS: CHLORIDE 104 mEq/L (98-107)
[2024-09-24 17:45] LABS: CARBON DIOXIDE 26 mEq/L (21-32)
[2024-09-24 17:46] LABS: CALCIUM 9.1 mg/dL (8.7-10.4)
[2024-09-24 17:50] LABS: CREATININE 0.9 mg/dL (0.6-1.3); GLUCOSE 103 mg/dL (70-105); UREA NITROGEN BLOOD 13 mg/dL (9-23)
[2024-09-24 18:01] LABS: POTASSIUM 3.9 mEq/L (3.5-5.1); SODIUM 143 mEq/L (136-145)
[2024-09-24] MEDS ORDERED: NALO4SPR BOTHNSTRLS (18:15)
== END 2024-09-24 19:34 | disposition home or self-care (01) ==
LOC: ER 15:53
DX: T40.2X1A Poisoning by other opioids, accidental (unintentional), initial encounter (principal); Z88.1 Allergy status to other antibiotic agents; Z79.899 Other long term (current) drug therapy; Y92.9 Unspecified place or not applicable
CPT/HCPCS: 36415; 80048; 85025; 99283